=== PATIENT | male | born 1945 | race Caucasian/White ===

== ENCOUNTER → 2016-10-17 | Outpatient (CLI) | payer MEDICARE, OTHER ==
[~2016-10-17] MED LIST: ACTOS15 MG ORAL; ADVAIR 250-501 EACH INH; ALEVE220 M2 PO; AMITIZA24 MCG ORAL; AMOX TR-K CLV1 EAC2 ORAL; ASPIRIN-LOW81 MG ORAL; BIAXIN500 MG ORAL; CHANTIX0.5 MG PO; CLOBETASOL PROP50 G1 TP; CLOTRIMAZOLE10 MG PO; COMPAZINE10 MG ORAL; CYMBALTA60 MG ORAL; DALIRESP500 MCG PO; DOCUSATE SODIU250 MG ORAL; ENALAPRIL MALEAT5 MG ORAL; FLOMAX0.4 MG ORAL; FUROSEMIDE40 MG/5 ML ORAL; IMDUR60 MG ORAL; INH300 MG ORAL; LEVAQUIN500 MG ORAL; LOVAZA1 GM ORAL; LYRICA75 M1 ORAL; METOPROLOL TART50 MG ORAL; NITROSTAT0.4 M1 SL; NORCO 10-325 T1 EACH ORAL; PLAVIX75 MG ORAL; POTASSIUM CHLO10 ME3 ORAL; PREDNISONE20 MG ORAL; PREDNISONE5 MG ORAL; PROMETHAZINE-C118 M1 ORAL; PROSCAR5 MG ORAL; ROBITUSSIN DM5 ML ORAL; SIMVASTATIN20 MG ORAL; SPIRIVA18 MCG INH; VIBRAMYCIN100 MG ORAL; VITAMIN B650 M1 GT; VITAMIN C500 M3 ORAL; ZETIA10 MG ORAL; ZOCOR20 MG ORAL
--- NOTE | 2016-10-18 09:06 | Diagnostic Imaging Report ---
Indications: Right-sided abdominal pain, history of appendectomy Technique: Continuous helical CT imaging of the abdomen was performed from the top of the diaphragm through iliac crests with automatic exposure control following administration of oral and intravenous nonionic iodine contrast, on a Siemens sensation [address] scanner. Axial, coronal, and sagittal images were reconstructed at 5 mm slice thickness. Pelvis not imaged as was not ordered. CTDI volume(s): 19 mGy Total DLP: 63 mGy-cm Findings: Comparison: CT abdomen pelvis 08/20/2014 Oral contrast has passed throughout the gastrointestinal tract to the level of proximal ascending colon. Imaged portions of tract nondilated. Moderate colonic fecal content. Multiple left colonic diverticula. No obvious mural thickening, adjacent stranding, extraluminal gas or fluid collections. Again noted are low attenuation foci in both renal cortices compatible with cysts, small nodular calcifications compatible with granulomas in the spleen, 12 mm circumscribed nodule in the left adrenal gland most likely representing adenoma, scattered arterial mural calcifications without obvious flow-limiting stenosis or occlusion, unchanged. Remainder visualized abdominal anatomy demonstrates no other obvious acute abnormality. Elevation of the left hemidiaphragm persists with adjacent subsegmental consolidation and volume loss in the left lung base, latter increased. Small linear densities in right lung base are unchanged. Degenerative changes again noted in lumbar, lower thoracic spine. IMPRESSION: No evidence of acute abdominal disease, unchanged. Stable chronic abdominal changes as described Stable right, increase in left lung base subsegmental atelectasis. Superimposed pneumonia left lung base not excludable.
== END | disposition home or self-care (01) ==
LOC: CAT 10:39
DX: R10.9 Unspecified abdominal pain (principal); Z90.89 Acquired absence of other organs; J98.11 Atelectasis
CPT/HCPCS: 74160; Q9967

== ENCOUNTER 2017-01-23 10:45 | Outpatient (CLI) | payer MEDICARE, OTHER ==
--- NOTE | 2017-01-23 15:45 | Diagnostic Imaging Report ---
Indication: Chest pain Technique: Continuous helical transaxial imaging of the chest was obtained from the thoracic inlet to the upper abdomen after intravenous nonionic contrast administration. Coronal 2-D reformats were also obtained. Total Dose length Product (DLP): [address] Dose Index Volume (CTDIvol): 8.1, 0.15, 32.45, 24.46 mGy Comparison: none Findings: Small focus of atelectasis or scarring noted at the left lung base. Pneumonia not excluded but felt to be less likely on the basis of imaging findings. There are some volume loss with elevation of the left hemidiaphragm. Please correlate clinically and obtain followup as needed. Coarse linear densities are noted at the right lung base likely scarring or atelectasis. No pleural effusion seen. No paracardial effusion or adenopathy identified. Aorta is moderately calcified. Calcified foci noted within the mediastinum and spleen. Impression: Basilar atelectasis and/or scarring. Doubt pneumonia from an imaging standpoint. Atherosclerotic disease. Old granulomatous disease The CT scanner at [facility] is accredited by the [employer] and the scans are performed using dose optimization techniques as appropriate to a performed exam including Automatic Exposure control.
== END 2017-01-23 12:45 | disposition home or self-care (01) ==
LOC: CAT 10:45
DX: R07.9 Chest pain, unspecified (principal); J98.11 Atelectasis; I70.90 Unspecified atherosclerosis
CPT/HCPCS: 71260; Q9967